=== PATIENT | male | born 1985 | race Caucasian/White ===

== ENCOUNTER 2018-07-13 18:34 | Emergency (ER) | payer BC ==
[~2018-07-13] VITALS: Ht 177.8 cm; Wt 90.7 kg
[~2018-07-13 18:34] MED LIST: CIPRO500 MG PO; Flagyl500 MG PO
== END 2018-07-13 20:21 | disposition home or self-care (01) ==
LOC: ER 18:34
DX: T15.11XA Foreign body in conjunctival sac, right eye, initial encounter (principal); W45.8XXA Other foreign body or object entering through skin, initial encounter
CPT/HCPCS: 65205; 99283